=== PATIENT | male | born 1995 | race African-American/Black ===

== ENCOUNTER 2020-08-10 08:12 | Emergency (ER) | payer OTHER ==
[~2020-08-10] VITALS: Ht 190.5 cm; Wt 143.3 kg
[~2020-08-10 08:12] MED LIST: HALO1TAB5 PO; ZIPR60CA2 PO
--- NOTE | 2020-08-10 08:20 | NUR ---
The patient is bibra60, walk in fire station c/o SI. plan to run to traffic. The patient is alert and oriented x3. Denies pain. In room air and denies SOB. Respiration regular and unlabored. Warm blanket provided for comfort. Sitter at the bedside. Will continue to monitor the patient.
--- NOTE | 2020-08-10 08:41 | NUR ---
phleb at bedside for blood draw. Instructed patient to give urine sample.
--- NOTE | 2020-08-10 08:41 | NUR ---
Covid swab sent to lab
[2020-08-10 08:47] LABS: BASOPHILS % (AUTO) 0.7 % (0.0-2.0); EOSINOPHILS % (AUTO) 1.5 % (0.0-6.0); HEMATOCRIT 38 % (39-51); LYMPHOCYTES # (AUTO) 1.7 /CMM (0.8-4.8); MEAN CORPUSCULAR HGB CONC 34 g/dl (31.0-36.0); MEAN CORPUSCULAR VOLUME 95 fL (80-96); MONOCYTES # (AUTO) 0.9 /CMM (0.1-1.30); MONOCYTES % (AUTO) 16.6 % (2.0-12.0); NEUTROPHILS # (AUTO) 2.8 /CMM (1.8-8.9); NEUTROPHILS % (AUTO) 50.2 % (43.0-81.0); PLATELET COUNT (AUTO) 322 /CMM (150-450); RED BLOOD CELL COUNT(AUTO) 4.04 MIL/uL (4.5-6.0); WHITE BLOOD COUNT (AUTO) 5.6 K/uL (4.3-11.0)
[2020-08-10 08:57] LABS: CALCIUM, SERUM 8.7 mg/dL (8.5-10.1); CARBON DIOXIDE 29 mmol/L (21-32); CHLORIDE 101 mmol/L (98-107); CREATININE 0.7 mg/dL (0.6-1.3); GLUCOSE 93 mg/dL (74-106); POTASSIUM 3.4 mmol/L (3.5-5.1); SODIUM SERUM 140 mmol/L (136-145); UREA NITROGEN, BLOOD 14 mg/dL (7-18)
[2020-08-10 09:02] LABS: ALANINE AMINOTRANSFERASE 157 U/L (12-78); ALBUMIN 3.7 g/dL (3.4-5.0); ALKALINE PHOSPHATASE 47 U/L (46-116); ASPARTATE AMINOTRANSFERASE 200 U/L (15-37); BILIRUBIN,DIRECT 0.2 mg/dL (0.0-0.2); BILIRUBIN,TOTAL 0.7 mg/dL (0.2-1.0); TOTAL PROTEIN, SERUM 7.9 g/dL (6.4-8.2)
--- NOTE | 2020-08-10 09:06 | NUR ---
received a call from the lab regarding covid 19 result, "negative".
[2020-08-10 09:08] LABS: ACETAMINOPHEN 0 ug/ml (10-30); ALCOHOL, BLOOD < 3 mg/dL (0-0)
[2020-08-10 09:36] LABS: BILIRUBIN,URINE SMALL (NEGATIVE); COLOR,URINE YELLOW (YELLOW); LEUKOCYTE ESTERASE ,URINE Negative (NEGATIVE); NITRITE, URINE Negative (NEGATIVE); PROTEIN,URINE 100 mg/dl (NEGATIVE); UGLUCOSE Negative (NEGATIVE)
[2020-08-10 09:37] LABS: BACTERIA,URINE Rare /HPF (None Seen); SQUAMOUS EPITHELIAL CELL,UR Rare /HPF (None Seen); WBC,URINE 0-2 /HPF (0-3)
--- NOTE | 2020-08-10 11:23 | NUR ---
The patient resting in bed. In no apparent distress.
--- NOTE | 2020-08-10 12:40 | NUR ---
Social Service Consult: enrollment services vice president consult requested for suicidal ideation with a plan. Patient is a 25-year-old, -[place]i male. SW met with the patient at his hospital bed in the emergency department. Patient was alert and oriented x4. Patient was resting. Per patients chart, patient was brought in to the hospital by ambulance after he walked into a fire station and stated that he was experiencing suicidal ideation with a plan to run into traffic. SW asked patient about his suicidal ideation and patient stated that he is currently having suicidal ideation but with no active plan. Patient denies homicidal ideation. SW asked patient if he would consider going to a psychiatric hospital voluntarily for further treatment, due to his current suicidal ideation. Patient agrees with this discharge plan. SW asked patient about his history of mental illness and patient stated that he has a history of Depression and Bipolar Disorder. Patient stated that he is not taking any psychotropic medications. SW asked patient if he has experienced hallucinations or delusions and patient denied any history. SW asked patient if he has a history of substance use and patient stated that he has used methamphetamine and cannabis but was unable to state the frequency as evidenced by his statement, I dont know, Im not sure. Patient was able to provide SW with the year he started his substance use, which was in 2014. Patient stated that he is currently homeless and has been homeless for a few months ever since he has been out of half-way. SW asked patient if he is receiving any income currently and patient stated that he currently has no consistent source of income but does receive some financial assistance from his father, Abram [phone]. Patient stated that he is in touch with his father and that his father provides him with some social support. Patient stated that he is independent with his ADLs. Patient stated that he usually takes the bus. SW discussed homeless and substance use resources with the patient. Patient stated that he is open to utilizing the resources in the packet and accepted the resources. SW asked patient to sign the homeless waiver. Patient signed the homeless waiver and SW filed the waiver in the patients chart. SW discussed discharge plan with the patient and patient agrees to go to [facility] voluntarily for further treatment. PLAN: SW will fax clinicals to [facility] [phone]. No further SS intervention at this time, however SW will remain available as needed. Homeless resources provided: Hygiene: [facility]: [address] [place] ; [facility] [address] [facility] ; [facility] [address] [place] . Food Resources: [place] [facility] at [facility]- [address] [place]; Meet Each Need with Dignity ([facility]) [address] [facility] Center[facility]osalio Estelline; [facility] Food [facility] [address] [facility]; [facility] [address] [place] [facility] [place]. Mental Health resources provided: [facility] [address] [place] [address] ; [facility] [address] [facility] [address], [place] [address] ; [facility] [address]283 [facility] [place], [place] [phone] ; [facility] [address] [place], [place] [phone] Healthcare Clinics: [facility] [address] [facility], [address] [place]. [place] ; [facility] [address] [facility] [address] [place] [address]; [facility] [address] [place] [address] [phone] Counseling--Outpatient [facility] [address] [facility], [place] [address] (Specializes in in-depth psychotherapy for emotional distress: anxiety, depression, interpersonal conflicts, life transitions, childhood abuse) PSYCHIATRIC OUTPATIENT SERVICES [facility] Partial Hospitalization and Intensive Outpatient Program (Managed Care and [place] Only) [address] [facility] [phone] [facility] Partial Hospitalization and Outpatient Program [address] [place] [address] [facility] Partial Hospitalization and Outpatient Program [address] [facility] [place], [place] [phone] [facility] [address] [facility] [address] [address] [facility]. [address] [place] [address] [facility] Partial Hospitalization and Outpatient Program [address] [place], [place] [phone] Substance use resources provided included: [facility] Substance Abuse Self-Helpline (SAS) ; [facility]LP [address] [facility] [place] [address] ; [facility] [address] [facility] [address] ; [facility] 400 [facility] [phone] ; [facility] 4940 [facility] [address] ; [facility] 909 [facility] [phone] ; [facility] [place]; [facility] [place]; Tamiment [place]; Alcoholics Anonymous -SFV
--- NOTE | 2020-08-10 12:50 | NUR ---
[employer] Hemmer note: [facility] faxed clinicals to [facility], .
--- NOTE | 2020-08-10 14:20 | NUR ---
The patient had lunch. Tolerated served food well. Denies any distress. Will continue to monitor the patient.
--- NOTE | 2020-08-10 14:52 | NUR ---
Patient is accepted to renetta cobb under Dr. Veloz [phone]
--- NOTE | 2020-08-10 15:38 | NUR ---
CALLED TRANSPORT [facility] NO ETA NO EVARISTO FOR PT. CALLED TRAN[facility]ORT [facility] NO ETA NO EVARISTO FOR PT. [facility] 1999 TRIP NUMBER IS [id number]
--- NOTE | 2020-08-10 16:56 | NUR ---
REPORT GIVEN TO CRISSY PEREZ FOR [facility].
--- NOTE | 2020-08-10 18:32 | NUR ---
UPDATED ETA IS 2100
[2020-08-10 21:23] VITALS: BP 141/80
--- NOTE | 2020-08-10 21:23 | NUR ---
REPORT GIVEN TO AMBULANCE FOR TRANSPORTATION [facility]
== END 2020-08-11 01:20 ==
LOC: ER 08:23
DX: R45.851 Suicidal ideations (principal); F31.9 Bipolar disorder, unspecified; F19.10 Other psychoactive substance abuse, uncomplicated; R74.01 Elevation of levels of liver transaminase levels; Z20.822 Contact with and (suspected) exposure to COVID-19; J45.909 Unspecified asthma, uncomplicated; Z79.899 Other long term (current) drug therapy
CPT/HCPCS: 36415; 80048; 80076; 80299; 80307; 80320; 81001; 85025; 87426; 99285; C9803; G0480

== ENCOUNTER 2020-08-19 09:49 | Emergency (ER) | payer OTHER ==
[~2020-08-19] VITALS: Ht 182.9 cm; Wt 113.4 kg
[2020-08-19 09:54] VITALS: BP 136/86
--- NOTE | 2020-08-19 10:03 | NUR ---
GERDA [id number] Homeless/foot swelling xcouple days +Meth/Drugs yesterday. On room air, breathing evenly and unlabored. connected to the monitor and pulse ox. Kept comfortable, will continue to monitor accordingly.
[2020-08-19 10:13] LABS: BASOPHILS % (AUTO) 0.5 % (0.0-2.0); EOSINOPHILS % (AUTO) 1.6 % (0.0-6.0); HEMATOCRIT 37 % (39-51); HEMOGLOBIN 12.6 g/dL (13.5-17.5); LYMPHOCYTES # (AUTO) 2.5 /CMM (0.8-4.8); LYMPHOCYTES % (AUTO) 28.1 % (20.0-44.0); MEAN CORPUSCULAR HGB CONC 34 g/dl (31.0-36.0); MEAN CORPUSCULAR VOLUME 95 fL (80-96); MONOCYTES # (AUTO) 0.9 /CMM (0.1-1.30); MONOCYTES % (AUTO) 9.7 % (2.0-12.0); NEUTROPHILS # (AUTO) 5.3 /CMM (1.8-8.9); NEUTROPHILS % (AUTO) 60.1 % (43.0-81.0); PLATELET COUNT (AUTO) 407 /CMM (150-450); RED BLOOD CELL COUNT(AUTO) 3.88 MIL/uL (4.5-6.0); WHITE BLOOD COUNT (AUTO) 8.8 K/uL (4.3-11.0)
[2020-08-19 10:22] LABS: CALCIUM, SERUM 8.9 mg/dL (8.5-10.1); CARBON DIOXIDE 28 mmol/L (21-32); CHLORIDE 103 mmol/L (98-107); CREATININE 0.9 mg/dL (0.6-1.3); GLUCOSE 115 mg/dL (74-106); POTASSIUM 3.5 mmol/L (3.5-5.1); SODIUM SERUM 138 mmol/L (136-145); UREA NITROGEN, BLOOD 16 mg/dL (7-18)
[2020-08-19 10:27] LABS: ALANINE AMINOTRANSFERASE 110 U/L (12-78); ALBUMIN 3.7 g/dL (3.4-5.0); ALKALINE PHOSPHATASE 58 U/L (46-116); ASPARTATE AMINOTRANSFERASE 106 U/L (15-37); BILIRUBIN,DIRECT 0.2 mg/dL (0.0-0.2); BILIRUBIN,TOTAL 0.5 mg/dL (0.2-1.0); TOTAL PROTEIN, SERUM 8.2 g/dL (6.4-8.2)
[2020-08-19 10:28] LABS: ACETAMINOPHEN 0 ug/ml (10-30); ALCOHOL, BLOOD < 3 mg/dL (0-0)
[2020-08-19 12:31] LABS: BILIRUBIN,URINE SMALL (NEGATIVE); COLOR,URINE DARK YELLOW (YELLOW); LEUKOCYTE ESTERASE ,URINE Negative (NEGATIVE); NITRITE, URINE Negative (NEGATIVE); PROTEIN,URINE 30 mg/dl (NEGATIVE); UGLUCOSE Negative (NEGATIVE)
[2020-08-19 12:45] LABS: BACTERIA,URINE Rare /HPF (None Seen); RBC,URINE NONE SEEN /HPF (0-2); SQUAMOUS EPITHELIAL CELL,UR Rare /HPF (None Seen); WBC,URINE 0-2 /HPF (0-3)
--- NOTE | 2020-08-19 13:39 | NUR ---
pt swab for covid. sent to lab.
--- NOTE | 2020-08-19 14:06 | NUR ---
covid negative per lab
--- NOTE | 2020-08-19 16:47 | NUR ---
PT ACCEPTED [phone] DONNA[address] DR. GÓMEZ IS ACCEPTING
--- NOTE | 2020-08-19 18:46 | NUR ---
. CALLED [facility] TRANSPORT TO [facility]. ETA 25-30 MINUTES.
--- NOTE | 2020-08-19 18:46 | NUR ---
report given to dennise topete sup. awaitng transport ambulance.
--- NOTE | 2020-08-19 19:53 | NUR ---
[facility] AT BEDSIDE FOR TRANSPORT.
== END 2020-08-19 20:11 ==
LOC: ER 10:00
DX: F19.10 Other psychoactive substance abuse, uncomplicated (principal); F15.10 Other stimulant abuse, uncomplicated; F12.10 Cannabis abuse, uncomplicated; R74.01 Elevation of levels of liver transaminase levels; R45.851 Suicidal ideations; M79.89 Other specified soft tissue disorders; F31.9 Bipolar disorder, unspecified; J45.909 Unspecified asthma, uncomplicated; I10 Essential (primary) hypertension; Z59.0 Homelessness; Z20.822 Contact with and (suspected) exposure to COVID-19
CPT/HCPCS: 36415; 71045; 80048; 80076; 80299; 80307; 80320; 81001; 83880; 85025; 87426; 99285; C9803; G0480

== ENCOUNTER 2020-09-05 11:11 | Inpatient (IN) | payer OTHER ==
[~2020-09-05] VITALS: Ht 190.5 cm; Wt 127.0 kg
[2020-09-05] MEDS ORDERED: KETOROLAC TROMETHAMINE 15 MG/ML VIAL ONE (11:25)
[2020-09-05] MEDS ORDERED: KETOROLAC TROMETHAMINE INJ 30 MG/ML VIAL IV ONE (11:30)
[2020-09-05] MEDS ORDERED: BACITRACIN ZINC OINT PACKET 1 EA PACKET TP ONE (11:30)
[2020-09-05] MEDS ORDERED: IV NS 0.9% 1,000 ML IV ONE (11:30)
[2020-09-05] MEDS ORDERED: CEPH500C2 PO (11:34)
[2020-09-05] MEDS ORDERED: SULF1TAB48 PO (11:34)
[2020-09-05] MEDS ORDERED: IBUP-1955 PO (11:34)
--- NOTE | 2020-09-05 11:40 | NUR ---
[facility] AND [employer] TO ER BED 12. AAOX4. NOT IN RESP DISTRESS. AMBULATORY. CAME IN FOR BILATERAL FOOT PAIN X 3-4 DAYS. PT IS A TRANSIENT AND REPORT THAT HE KEEP WALKING AND HIS SHOES DOES NOT FIT WELL. NOTED BILAT OPEN ULCER ON HIS BILAT FOOT 5TH DIGIT. ALSO NOTED FISSURE ON BILAT FOOT BETWEEN THE 1ST & 2ND DIGIT. PAIN IS RATED @ 6/10. MD WAS AT THE BEDSIDE FOR EVAL. ORDERS RECEIVED, NOTED AND CARRIED OUT.
[2020-09-05 12:21] LABS: BASOPHILS % (AUTO) 0.8 % (0.0-2.0); EOSINOPHILS % (AUTO) 5.1 % (0.0-6.0); HEMATOCRIT 37 % (39-51); HEMOGLOBIN 12.6 g/dL (13.5-17.5); LYMPHOCYTES # (AUTO) 1.9 /CMM (0.8-4.8); LYMPHOCYTES % (AUTO) 41.6 % (20.0-44.0); MEAN CORPUSCULAR HGB CONC 34 g/dl (31.0-36.0); MEAN CORPUSCULAR VOLUME 95 fL (80-96); MONOCYTES # (AUTO) 0.5 /CMM (0.1-1.30); MONOCYTES % (AUTO) 10.7 % (2.0-12.0); NEUTROPHILS # (AUTO) 1.9 /CMM (1.8-8.9); NEUTROPHILS % (AUTO) 41.8 % (43.0-81.0); PLATELET COUNT (AUTO) 354 /CMM (150-450); RED BLOOD CELL COUNT(AUTO) 3.93 MIL/uL (4.5-6.0); WHITE BLOOD COUNT (AUTO) 4.5 K/uL (4.3-11.0)
[2020-09-05] MEDS ORDERED: VANCOMYCIN 1 GM VIAL ONE ×2 (12:24→22:28)
[2020-09-05] MEDS ORDERED: PIPERACILLIN /TAZOBACTAM 3.375 G VIAL IV ONE (12:24)
[2020-09-05] MEDS ORDERED: PIPERACILLIN /TAZOBACTAM 3.375 G in IV D5W 50 ML IV ONE (12:25)
[2020-09-05 12:29] LABS: CALCIUM, SERUM 8.5 mg/dL (8.5-10.1); POTASSIUM 3.6 mmol/L (3.5-5.1)
[2020-09-05] MEDS ORDERED: VANCOMYCIN 1 GM in IV D5W 250 ML IV ONE (12:30)
[2020-09-05] MEDS ORDERED: MIRT15TA7 PO (12:36)
[2020-09-05] MEDS ORDERED: OLAN2.5T3 PO (12:36)
[2020-09-05 12:38] LABS: C-REACTIVE PROTEIN 1.2 mg/dL (0.0-0.9)
--- NOTE | 2020-09-05 12:49 | NUR ---
COVID SWAB DONE AND SENT TO LAB
--- NOTE | 2020-09-05 12:49 | NUR ---
PANEL ON-CALL PAGED
--- NOTE | 2020-09-05 12:54 | NUR ---
CALLED NURSING SUP FOR BED. NEED TO CALLBACK ONCE ACCEPTED BY ADMITTING AND INFORM PT IS HOMELESS
--- NOTE | 2020-09-05 13:32 | NUR ---
ROOM 105
--- NOTE | 2020-09-05 13:44 | NUR ---
REPORT GIVEN TO CHRIS TREJO FOR [facility]
--- NOTE | 2020-09-05 13:45 | NUR ---
RN NOTE PT REPORT RECEIVED FROM CHRIS LOZANO FROM ED
--- NOTE | 2020-09-05 14:39 | NUR ---
PT TRANSPORTED TO UNIT ONGURNEY WITH EMT AT BEDSIDE W/ ACLS PROTOCOL. NAD NOTED DURING TRANSPORT.
--- NOTE | 2020-09-05 14:45 | NUR ---
RN NOTE PT TRANSFERRED TO ROOM 105 IN STABLE CONDITION. PT BREATHING RA SPO2 OF 99%, WITH NO RESP DISTRESS OR SOB, PT IS A/Ox4, AMBULATORY WITH STEADY GAIT. PT LAC #18, FLUSHED, INTACT AND PATENT. PT HAS BILATERAL ULCER ON 5TH TOES AND FISSURE BETWEEN 1ST AND 2ND TOES. PT STATES 5/10 BILATERAL FOOT PAIN, WILL ADMIN MEDS ORDERED. ALL PT SAFETY PRECAUTIONS IN PLACE, WILL CONT TO MONITOR
[2020-09-05 15:00] VITALS: BP 124/74
[2020-09-05] MEDS ORDERED: HYDROMORPHONE 1 MG/1 ML DISP.SYRIN IV PRN (15:30)
[2020-09-05 16:00] VITALS: BP 129/71
--- NOTE | 2020-09-05 19:10 | NUR ---
RN CLOSING NOTE NO CHANGES TO PT STATUS DURING SHIFT. ALL PT SAFETY PRECAUTIONS IN PLACE, [facility] ENDORSED TO FURNACE RELINER NURSE
[2020-09-05 20:00] VITALS: BP 125/50
[2020-09-05] MEDS ORDERED: ACETAMINOPHEN 325 MG TABLET PO PRN (21:30)
[2020-09-05] MEDS ORDERED: HYDROCODONE/APAP 10/325MG TABLET PO PRN (21:30)
[2020-09-05] MEDS ORDERED: ALBUTEROL SULFATE 8 GM HFA.AER.AD IH PRN (21:30)
[2020-09-05] MEDS ORDERED: Z GUARD REMEDY 2 OZ OINT TP PRN (21:30)
[2020-09-05] MEDS ORDERED: ENOXAPARIN SODIUM 40 MG/0.4 ML DISP.SYRIN SQ SCH (21:30)
[2020-09-05] MEDS ORDERED: ONDANSETRON HCL/PF 4 MG/2 ML VIAL IVP PRN (21:30)
[2020-09-05] MEDS ORDERED: ZOLPIDEM TARTRATE 5 MG TABLET PO PRN (21:30)
--- NOTE | 2020-09-05 21:35 | NUR ---
MS-1/ACCOUNT [facility] DR. NEWMAN AT BEDSIDE TO EVALUATE PT. PER DR. NEWMAN DO NOT DISTURB PT. WILL CONTINUE TO MONITOR.
--- NOTE | 2020-09-05 21:54 | NUR ---
MED NOTE: PER DR. NEWMAN GIVE LOVENOX IN THE AM.
[2020-09-05] MEDS ORDERED: VANCOMYCIN 2 GM in IV D5W 500 ML IV SCH (22:30)
[2020-09-06 05:56] LABS: BASOPHILS % (AUTO) 0.8 % (0.0-2.0); EOSINOPHILS % (AUTO) 5.4 % (0.0-6.0); HEMATOCRIT 36 % (39-51); LYMPHOCYTES # (AUTO) 1.9 /CMM (0.8-4.8); LYMPHOCYTES % (AUTO) 43.4 % (20.0-44.0); MEAN CORPUSCULAR HGB CONC 34 g/dl (31.0-36.0); MEAN CORPUSCULAR VOLUME 95 fL (80-96); MONOCYTES # (AUTO) 0.5 /CMM (0.1-1.30); MONOCYTES % (AUTO) 10.8 % (2.0-12.0); NEUTROPHILS # (AUTO) 1.7 /CMM (1.8-8.9); NEUTROPHILS % (AUTO) 39.6 % (43.0-81.0); PLATELET COUNT (AUTO) 333 /CMM (150-450); RED BLOOD CELL COUNT(AUTO) 3.75 MIL/uL (4.5-6.0); WHITE BLOOD COUNT (AUTO) 4.4 K/uL (4.3-11.0)
[2020-09-06 06:14] LABS: BILIRUBIN,TOTAL 0.5 mg/dL (0.2-1.0); CALCIUM, SERUM 8.5 mg/dL (8.5-10.1); CREATININE 0.8 mg/dL (0.6-1.3); MAGNESIUM 1.8 mg/dL (1.8-2.4); PHOSPHORUS 4.1 mg/dL (2.5-4.9); POTASSIUM 3.5 mmol/L (3.5-5.1); TOTAL PROTEIN, SERUM 7.2 g/dL (6.4-8.2)
[2020-09-06] MEDS ORDERED: VANCOMYCIN 1.25 GM in IV D5W 250 ML IV SCH ×2 (06:30→14:00)
--- NOTE | 2020-09-06 07:30 | NUR ---
RN OPENING NOTE PATIENT PRESENT IN BED, AWAKE, A/OX4, ON ROOM AIR, SPO2 99%, NO RESP DISTRESS, SOB OR COUGH NOTED OR REPORTED, DENIES PAIN OR DISCOMFORT AT THIS MOMENT, ABLE TO AMBULATE, IV LINE ON R AC PATENT, INTACT, AND FLUSHED, SAFETY MEASURES IN PLACE, BED LOCKED, IN LOWEST [id number], CALL LIGHT IN REACH, WILL CONT TO MONITOR
[2020-09-06 08:00] VITALS: BP 145/65
[2020-09-06] MEDS ORDERED: KETOCONAZOLE 2% CREAM 15 GM TUBE TP SCH (09:00)
[2020-09-06] MEDS ORDERED: ENOXAPARIN SODIUM 40 MG/0.4 ML DISP.SYRIN SQ SCH (09:00)
--- NOTE | 2020-09-06 10:13 | NUR ---
WOUND CARE CONSULT: DR ALMENDAREZ NOTIFIED OF DPM CONSULT FOR TOE WOUNDS, PRESENT ON ADMISSION. PT IS INDEPENDENT WITH BED MOBILITY AND IS CONTINENT. IN AGREEMENT WITH PLAN OF CARE.
--- NOTE | 2020-09-06 13:30 | NUR ---
Patient requesting to speak with SW regarding recourses and DC, contacted SW via phone
--- NOTE | 2020-09-06 13:35 | NUR ---
SS Consult received for homelessness. SW will follow up at a later time.
[2020-09-06] MEDS ORDERED: DOXY100C2 PO (14:55)
[2020-09-06 16:00] VITALS: BP 134/46
--- NOTE | 2020-09-06 16:25 | NUR ---
"SS consult requested for homelessness. The pt. is a 25 year old Black male. [facility]LE met with pt. bedside. The pt. is A&O X 4 AND MAKES GOOD EYE CONTACT. The pt.'s mood is WNL. Pt. denies SI/HI and denies hallucinations. Pt. agreeable to halfway placement. Pt. signed homeless waiver in it was placed in pt.'s chart. Pt. will follow up with halfway as walk in with resources provided. Pt. states he has Hx. of Bipolar and is on Zyprexa and Remron. SW notified charge nurse, Aftab Wray resources provided include: Substance Abuse resources provided included: [facility] Substance Abuse Self-Helpline ([facility]) ; CRI [facility]HELP [address] [facility]. [place] [address] ; [facility] [address] [facility] [address] ; [facility] Rehabilitation [facility] [address] [facility] [address] ; [facility] 400 [facility] [phone] ; [facility] [address] [facility] [phone] ; [facility] 909 [facility] [phone] ; [facility] Substance Abuse Helpline([facility] ; [facility] ; [facility]; [facility] [place]; [facility] Bk Trotter; [facility] [place]; [place]; [facility], [facility]. [place]; Alcoholics Anonymous -SFV; Cu-Vqae-Ldepvjd ; Marijuana Anonymous -SFV; Narcotics Anonymous www.na.org; Year-round shelters: [facility] [place] [address] [place] [address] ; [facility] [place] [address] [facility] [place] [address]; [facility] [address] [facility] [address] Winter Shelters: Frances Harrington [place] Provider: [facility] [place] Address: [address] [place], [address] # of Beds: 47 Population Served: [facility] 6 | [facility] Amaya Venegas [place] Provider: [facility] Last Address: [address], [address] # of Beds: 66 Population Served: [facility] [place] Provider: First to Serve Address: [address] [facility], [address] # of Beds: 56 Population Served: [facility] Tony [place] Provider: [facility] Address: [address] [facility], [address] # of Beds: 49 Population Served: [facility] 8 | [facility] Provider: First to Serve Address: [address] [facility], [address] # of Beds: 37 Population Served: [facility] Hygiene: [facility]: [address] [place] ; [facility] [address] [facility] [address] [place] ; [facility] [address] . Food Resources: [place] [facility] at [facility]- [address] [place]; Meet Each Need with Dignity ([facility]) [address] [place]; [facility] Food Pantry [address] [facility]; [facility] [address] [place] [facility] [place]. Mental Health resources provided: [facility] [address] [place], [place] [address] ; [facility] Inc[facility] [address] [facility] [address], [place], [place] [phone] ; [facility] [address] Diana Alberts [place], [place] [phone] ; [facility] [address] [place], [place] [phone] Healthcare Clinics: [facility] [address] [facility], [address] [place]. [place] ; [facility] [address] [facility] [address] [place] [address]; [facility] [address] [place] [address] [phone] Counseling--Outpatient [facility] [address] [facility], [place] [address] (Specializes in in-depth psychotherapy for emotional distress: anxiety, depression, interpersonal conflicts, life transitions, childhood abuse) [facility]ance Center [address] [place] [address] (Assist with solving problem marital difficulties, separation & divorce, aging parents, & grief, chronic & terminal illness) [facility] [address] [place] [address] (Deal with loss & grief, anxiety, marital difficulties) Homebound/Mental Health Services [address] [facility], [address] [place], [place] [phone] (Provide in-home mental services to people who are incapable of leaving their homes) Organization for Needs of the Elderly Senior Service/Resource Center [address] [place], [place] [phone] [facility] 6514 [facility] [place] [address] PSYCHIATRIC OUTPATIENT SERVICES [facility] Partial Hospitalization and Intensive Outpatient Program (Managed Care and [place] [facility] Only)[address]. [facility] [phone] [facility] Partial Hospitalization and Outpatient Rqiwiud[address] [place], [place] [phone] [facility] Partial Hospitalization and Outpatient Wjlenyv[address] [place], [place] [phone] [facility] Mental [facility] Thy21110 [facility]. [address] [place], [place] [phone] [facility] Partial Hospitalization and Outpatient Hqhayfb22899 [facility] Bk TrotterGRAHAM, [phone] "
--- NOTE | 2020-09-06 16:37 | NUR ---
Patient discharged, refused to take pictures of wounds, was in hurry, IV line removed, ID band removed
--- NOTE | 2020-09-06 16:40 | NUR ---
Patient left RX prescription at bed site , left, made attempt to reach him via cell rosa elena, unable cell phone absent, made attempt to fins him outside of Hospital, unsuccessful. Called [facility] to reach out hospitalist, abby message, Charge Nurse aware
== END 2020-09-06 20:31 | disposition home or self-care (01) | DRG 383 ==
LOC: ER 11:12 → MEDSG1 13:54
PROVIDERS: ADMIT Nurse Practitioner Acute Care; ATTEND Surgery
DX: L03.115 Cellulitis of right lower limb (principal); E66.01 Morbid (severe) obesity due to excess calories; L03.116 Cellulitis of left lower limb; G62.9 Polyneuropathy, unspecified; I10 Essential (primary) hypertension; J45.909 Unspecified asthma, uncomplicated; Z59.0 Homelessness; Z20.822 Contact with and (suspected) exposure to COVID-19; F31.9 Bipolar disorder, unspecified; Z68.35 Body mass index [BMI] 35.0-35.9, adult; S90.422A Blister (nonthermal), left great toe, initial encounter; X58.XXXA Exposure to other specified factors, initial encounter; Y93.9 Activity, unspecified; Y92.89 Other specified places as the place of occurrence of the external cause; L97.529 Non-pressure chronic ulcer of other part of left foot with unspecified severity; L97.519 Non-pressure chronic ulcer of other part of right foot with unspecified severity
CPT/HCPCS: 36415; 71045-TC; 73630-TC; 80048-TC; 80053-TC; 80061-TC; 82962-TC; 83735-TC; 84100-TC; 85025-TC; 85610-TC; 85652-TC; 86140-TC; 86850-TC; 87081-TC; A6403; C9803; G0378; J1650; J1885; J2543; J3370; J7030; J7050; J7060; U0003